=== PATIENT | female | born 1950 | race Caucasian/White ===

== ENCOUNTER 2016-08-27 13:08 | Outpatient (CLI) | payer MEDICARE, OTHER | END 2016-08-27 13:09 | disposition home or self-care (01) | DX: Z12.31 Encounter for screening mammogram for malignant neoplasm of breast (principal) ==

== ENCOUNTER 2016-08-27 13:10 | Outpatient (CLI) | payer MEDICARE, OTHER | END 2016-08-27 13:11 | disposition home or self-care (01) | DX: M85.88 Other specified disorders of bone density and structure, other site (principal); Z78.0 Asymptomatic menopausal state ==

== ENCOUNTER 2016-11-01 10:44 | Outpatient (CLI) | payer MEDICARE, OTHER ==
[2016-11-01 11:08] LABS: BASOPHILS # (AUTO) 0.1 10^3/uL (0.0-0.1); BASOPHILS % (AUTO) 1.4 %; EOSINOPHILS # (AUTO) 0.1 10^3/uL (0.0-0.7); EOSINOPHILS % (AUTO) 1.8 %; HCT - HEMATOCRIT 40.5 % (37.0-47.0); HGB - HEMOGLOBIN 13.9 g/dL (12.0-16.0); LYMPHOCYTES # (AUTO) 1.8 10^3/uL (1.5-3.5); LYMPHOCYTES % (AUTO) 26.1 %; MEAN CORPUSCULAR HEMOGLOBIN 32.1 pg (27.0-31.0); MEAN CORPUSCULAR HGB CONC 34.3 g/dL (32.0-36.0); MEAN CORPUSCULAR VOLUME 93.6 fL (81.0-99.0); MEAN PLATELET VOLUME 7.8 fL (7.9-10.8); MONOCYTES # (AUTO) 0.5 10^3/uL (0.0-1.0); MONOCYTES % (AUTO) 7.4 %; NEUTROPHILS # (AUTO) 4.3 10^3/uL (1.5-6.6); NEUTROPHILS % (AUTO) 63.3 %; RED BLOOD COUNT 4.32 10^6/uL (4.20-5.40); RED CELL DISTRIBUTION WIDTH 13.4 % (12.0-15.0); UNCORRECTED WHITE BLOOD COUNT 6.8 x10^3/uL; WHITE BLOOD COUNT 6.8 x10^3/uL (4.8-10.8)
== END 2016-11-01 10:45 | disposition home or self-care (01) ==
LOC: LAB 10:44
PROVIDERS: ATTEND Internal Medicine Cardiovascular Disease
DX: I48.0 Paroxysmal atrial fibrillation (principal)
CPT/HCPCS: 36415; 85025

== ENCOUNTER 2017-09-02 08:45 | Outpatient (CLI) | payer MEDICARE, OTHER ==
--- NOTE | 2017-09-03 11:20 | Mammography Report ---
DIGITAL SCREENING MAMMOGRAM: 09/02/2017 CLINICAL INDICATION: A 67-year-old for screening. COMPARISON: 08/2016, 12/2013, 10/2012, 06/2011, 11/2009. TECHNIQUE: Routine CC and MLO projections were obtained of the breasts. FINDINGS: Scattered fibroglandular tissue is present within the breasts. There are no dominant masses, suspicious microcalcifications, or secondary signs of malignancy. In comparison to the previous studies, there are no significant changes. IMPRESSION: NO MAMMOGRAPHIC EVIDENCE OF MALIGNANCY. NO SIGNIFICANT INTERVAL CHANGES. RECOMMENDATION: Screening mammography is recommended annually. BIRADS CATEGORY 1 - NEGATIVE. STANDARD QUALIFYING STATEMENTS: 1. This examination was reviewed with the aid of Computed-Aided Detection (CAD). 2. A negative or benign imaging report should not delay biopsy if clinically suspicious findings are present. Consider surgical consultation if warranted. More than 5% of cancers are not identified by imaging. 3. Dense breasts may obscure an underlying neoplasm. TD: 09/03/2017 11:19
== END 2017-09-02 08:46 | disposition home or self-care (01) ==
LOC: DI 08:45
PROVIDERS: ATTEND Physician Assistant
DX: Z12.31 Encounter for screening mammogram for malignant neoplasm of breast (principal)
CPT/HCPCS: 77067

== ENCOUNTER 2017-12-09 08:39 | Outpatient (CLI) | payer MEDICARE, OTHER ==
[2017-12-09 11:46] LABS: BASOPHILS # (AUTO) 0.1 10^3/uL (0.0-0.1); BASOPHILS % (AUTO) 1.2 %; EOSINOPHILS # (AUTO) 0.1 10^3/uL (0.0-0.7); EOSINOPHILS % (AUTO) 1.7 %; HGB - HEMOGLOBIN 13.5 g/dL (12.0-16.0); LYMPHOCYTES # (AUTO) 1.7 10^3/uL (1.5-3.5); LYMPHOCYTES % (AUTO) 25.4 %; MEAN CORPUSCULAR HEMOGLOBIN 32.6 pg (27.0-31.0); MEAN CORPUSCULAR HGB CONC 33.6 g/dL (32.0-36.0); MEAN PLATELET VOLUME 9.1 fL (7.9-10.8); MONOCYTES # (AUTO) 0.5 10^3/uL (0.0-1.0); MONOCYTES % (AUTO) 7.8 %; NEUTROPHILS # (AUTO) 4.4 10^3/uL (1.5-6.6); NEUTROPHILS % (AUTO) 63.9 %; PLT - PLATELET COUNT 305 10^3/uL (130-450); RED BLOOD COUNT 4.13 10^6/uL (4.20-5.40); RED CELL DISTRIBUTION WIDTH 12.9 % (12.0-15.0); WHITE BLOOD COUNT 6.8 x10^3/uL (4.8-10.8)
[2017-12-09 12:09] LABS: ALBUMIN 3.8 g/dL (3.2-5.5); ALBUMIN/GLOBULIN RATIO 1.2 (1.0-2.2); CALCIUM 8.9 mg/dL (8.5-10.3); CREATININE 0.6 mg/dL (0.4-1.0); TOTAL PROTEIN 6.9 g/dL (6.7-8.2)
[2017-12-09 12:24] LABS: THYROID STIMULATING HORMONE 2.51 uIU/mL (0.34-5.60)
[2017-12-09 12:26] LABS: FREE T4 (FREE THYROXINE) 0.86 ng/dL (0.58-1.64)
== END 2017-12-09 08:40 | disposition home or self-care (01) ==
LOC: LAB.F 08:39
PROVIDERS: ATTEND Internal Medicine Cardiovascular Disease
DX: Z79.899 Other long term (current) drug therapy (principal)
CPT/HCPCS: 36415; 80053; 84439; 84443; 85025

== ENCOUNTER 2017-12-10 08:21 | Outpatient (CLI) | payer MEDICARE, OTHER | END 2017-12-10 08:22 | disposition home or self-care (01) | LOC: DI 08:21 | PROVIDERS: ATTEND Internal Medicine Cardiovascular Disease | DX: I48.91 Unspecified atrial fibrillation (principal); R53.83 Other fatigue | CPT/HCPCS: 93306 ==

== ENCOUNTER 2019-04-29 11:00 | Outpatient (CLI) | payer MEDICARE, OTHER ==
--- NOTE | 2019-04-30 07:46 | Mammography Report ---
Reason: ROUTINE MAMMO Procedure Date: 04/29/2019 Accession Number: [id number] / [id number] Procedure: REFUGIO - Screening Mammo Dig Bilat CPT Code: Final Report FULL RESULT: EXAM: Screening Mammo Dig Bilat DATE: 04/29/2019 11:33 AM CLINICAL HISTORY: Screening encounter. TECHNIQUE: (B) - Bilateral CC and MLO views were obtained. COMPARISON: 09/02/2017 through 12/12/2009. PARENCHYMAL PATTERN: (A) - The breast(s) demonstrate(s) scattered fibroglandular densities. FINDINGS: There are no suspicious masses, calcifications, or areas of distortion. IMPRESSION: Negative examination. BI-RADS category 1. RECOMMENDATION: (ANNUAL) - Recommend routine annual screening mammography. BI-RADS CATEGORY: (1) - Negative. STANDARD QUALIFYING STATEMENTS: 1. This examination was not reviewed with the aid of Computer-Aided Detection (CAD). 2. A negative or benign imaging report should not preclude biopsy if clinically suspicious findings are present. 3. Dense breasts may obscure an underlying neoplasm. 4. This examination was reviewed without the aid of 3D breast imaging (tomosynthesis).
--- NOTE | 2019-05-04 10:10 | Mammography Report ---
Reason: SCREENING MAMMO Procedure Date: 04/29/2019 Accession Number: [id number] / [id number] Procedure: REFUGIO - Screening Mammo w/Joey CPT Code: Final Report FULL RESULT: EXAM: Screening Mammo w/Joey DATE: 04/29/2019 11:23 AM CLINICAL HISTORY: Routine screening TECHNIQUE: (B) - Bilateral CC and MLO views were obtained. COMPARISON: 09/02/2017, 08/27/2016, 01/06/2014, 11/13/2012, 07/11/2011, and 12/12/2009 PARENCHYMAL PATTERN: (A) - The breasts demonstrate scattered fibroglandular densities bilaterally. FINDINGS: Left breast: There are no suspicious masses, calcifications, or areas of distortion. Right breast: At least 1 and possibly 2 immediately retroareolar nodules are seen which have been present on several studies but not previously evaluated. No architectural distortion, skin thickening, or suspicious microcalcifications. IMPRESSION: Incomplete examination. BI-RADS category 0. Needs additional evaluation right breast by spot compression and true lateral views and possible ultrasound. Negative left breast. RECOMMENDATION: ([facility]) - Additional views using both Mammography and Ultrasound recommended. Right breast. BI-RADS CATEGORY: (0) - Incomplete Examination - need additional evaluation. STANDARD QUALIFYING STATEMENTS: 1. This examination was not reviewed with the aid of Computer-Aided Detection (CAD). 2. A negative or benign imaging report should not preclude biopsy if clinically suspicious findings are present. 3. Dense breasts may obscure an underlying neoplasm. 4. This examination was reviewed without the aid of 3D breast imaging (tomosynthesis).
== END 2019-04-29 11:01 | disposition home or self-care (01) ==
LOC: DI 11:00
DX: Z12.31 Encounter for screening mammogram for malignant neoplasm of breast (principal); R92.8 Other abnormal and inconclusive findings on diagnostic imaging of breast
CPT/HCPCS: 77063; 77067

== ENCOUNTER 2019-05-27 13:57 | Outpatient (CLI) | payer MEDICARE, OTHER ==
--- NOTE | 2019-05-27 16:19 | Ultrasound Report ---
Reason: ABNORMAL MAMMO RT BREAST Procedure Date: 05/27/2019 Accession Number: [id number] / [id number] Procedure: US - Breast Unilateral Limited CPT Code: Final Report FULL RESULT: EXAM: Breast Unilateral Limited, Diag Special Views Dig RT DATE: 05/27/2019 3:06 PM CLINICAL HISTORY: The patient is an asymptomatic 69-year-old female recalled from screening mammogram (04/29/2019) RIGHT MAMMOGRAM TECHNIQUE: ( 3-D CC and LM views. Spot CC and MLO views. COMPARISON: 04/29/2019 MAMMOGRAM FINDINGS: The breasts demonstrate scattered fibroglandular densities bilaterally. The described subareolar asymmetry near fully dissipates on targeted diagnostic imaging. There are no mammographic features of malignancy. RIGHT ULTRASOUND TECHNIQUE: A high frequency transducer was utilized to evaluate the subareolar position (area of mammographic concern). Presented static images obtained. FINDINGS: ULTRASOUND FINDINGS: [place] of normal fibroglandular tissue present. Few normal subareolar ducts noted. No solid mass, distortion or hyperemia. There are no sonographic features of malignancy. IMPRESSION: Benign findings. BI-RADS category 2. RECOMMENDATION: (ANNUAL) - Recommend routine annual screening mammography. BI-RADS CATEGORY: (2) - Benign Findings. STANDARD QUALIFYING STATEMENTS: A negative or benign imaging report should not preclude biopsy if clinically suspicious findings are present. Dense breasts may obscure an underlying neoplasm. This mammogram was reviewed with the aid of 3D breast imaging (tomosynthesis).
== END 2019-05-27 13:58 | disposition home or self-care (01) ==
LOC: DI 13:57
PROVIDERS: ATTEND Physician Assistant
DX: R92.8 Other abnormal and inconclusive findings on diagnostic imaging of breast (principal)
CPT/HCPCS: 76642

== ENCOUNTER 2019-07-30 07:30 | Outpatient (CLI) | payer MEDICARE, OTHER ==
[2019-07-30 10:18] LABS: BASOPHILS # (AUTO) 0.1 10^3/uL (0.0-0.1); BASOPHILS % (AUTO) 1.3 %; EOSINOPHILS # (AUTO) 0.2 10^3/uL (0.0-0.7); EOSINOPHILS % (AUTO) 2.3 %; HGB - HEMOGLOBIN 13.8 g/dL (12.0-16.0); LYMPHOCYTES % (AUTO) 26.2 %; MEAN CORPUSCULAR HGB CONC 32.9 g/dL (32.0-36.0); MEAN CORPUSCULAR VOLUME 97.4 fL (81.0-99.0); MEAN PLATELET VOLUME 10.1 fL (7.9-10.8); MONOCYTES # (AUTO) 0.6 10^3/uL (0.0-1.0); MONOCYTES % (AUTO) 7.8 %; NEUTROPHILS # (AUTO) 4.7 10^3/uL (1.5-6.6); NEUTROPHILS % (AUTO) 62.1 %; PLT - PLATELET COUNT 345 10^3/uL (130-450); RED BLOOD COUNT 4.31 10^6/uL (4.20-5.40); RED CELL DISTRIBUTION WIDTH 12.2 % (12.0-15.0); WHITE BLOOD COUNT 7.6 x10^3/uL (4.8-10.8)
[2019-07-30 10:41] LABS: ALBUMIN 4.2 g/dL (3.2-5.5); ALBUMIN/GLOBULIN RATIO 1.3 (1.0-2.2); BILIRUBIN,TOTAL 0.9 mg/dL (0.2-1.0); CALCIUM 8.9 mg/dL (8.5-10.3); CREATININE 0.7 mg/dL (0.4-1.0); TOTAL PROTEIN 7.4 g/dL (6.7-8.2)
[2019-07-30 10:56] LABS: THYROID STIMULATING HORMONE 1.92 uIU/mL (0.34-5.60)
[2019-07-30 10:58] LABS: FREE T4 (FREE THYROXINE) 0.81 ng/dL (0.58-1.64)
== END 2019-07-30 07:31 | disposition home or self-care (01) ==
LOC: LAB.S 07:30
PROVIDERS: ATTEND Physician Assistant
DX: F41.9 Anxiety disorder, unspecified (principal); Z79.01 Long term (current) use of anticoagulants
CPT/HCPCS: 36415; 80053; 84439; 84443; 85025

== ENCOUNTER 2020-09-05 11:17 | Outpatient (CLI) | payer MEDICARE, OTHER ==
--- NOTE | 2020-09-06 09:58 | Mammography Report ---
BILATERAL DIGITAL SCREENING MAMMOGRAM 3D/2D: 09/05/2020 CLINICAL: Routine screening. Comparison is made to exams dated: 05/27/2019 mammogram, 04/29/2019 mammogram, and 08/23/2017 mammogram - [facility]. There are scattered fibroglandular elements in both breasts. No significant masses, calcifications, or other findings are seen in either breast. There has been no significant interval change. IMPRESSION: NEGATIVE There is no mammographic evidence of malignancy. A 1 year screening mammogram is recommended. This exam was interpreted at Station ID: [id number]. NOTE: For mammograms, a report in lay terms will be sent to the patient. Approximately 15% of breast malignancies will not be visualized mammographically. In the management of a palpable breast mass, a negative mammogram must not discourage biopsy of a clinically suspicious lesion. Electronically Signed By: Navi Youssef M.D. ar/penrad:09/05/2020 12:14:12 ACR BI-RADS Category 1: Negative 3341F PARENCHYMAL PATTERN: (A) - The breast(s) demonstrate(s) scattered fibroglandular densities. BI-RADS CATEGORY: (1) - 1 RECOMMENDATION: (ANNUAL) - Recommend routine annual screening mammography. [id number] 1 year screening LATERALITY: (B)
== END 2020-09-05 11:18 | disposition home or self-care (01) ==
LOC: DI 11:17
DX: Z12.31 Encounter for screening mammogram for malignant neoplasm of breast (principal)

== ENCOUNTER 2020-10-03 08:25 | Outpatient (CLI) | payer MEDICARE, OTHER ==
--- NOTE | 2020-10-03 10:00 | DEXA Report ---
PROCEDURE: Dexa Spine and/or Hip INDICATIONS: OSTEOPENIA TECHNIQUE: Dual energy x-ray absorptiometry (DXA) was performed on a [employer]. Regions measur ed are the AP Spine, femoral neck, and if needed forearm. COMPARISON: DEXA 08/27/2016 FINDINGS: Lumbar Spine: Bone Mineral Density 1.04 g/cm/cm,T score 0.2, compared to 0.4 Left Hip: Bone Mineral Density 0.891 g/cm/cm,T score -0.9, . -0.8 Left Femoral Neck: Bone Mineral Density 0.895 g/cm/cm, T score -1.0, compared to -1.2 (T score greater or equal to -1.0: NORMAL) (T score from -1.1 to -2.4: OSTEOPENIA) (T score less than or equal to -2.5 to: OSTEOPOROSIS) Impression: Borderline osteopenia within left femoral neck, slightly improved compared to prior exam. Patients with diagnosis of osteoporosis or osteopenia should have regular bone mineral density assess ment. For those eligible for Medicare, routine testing is allowed once every 2 years. Testing frequ ency can be increased for patients who have rapidly progressing disease or for those who are receivin g medical therapy to restore bone mass. Reviewed by: Ruth Piper MD on 10/03/2020 9:59 AM PDT Approved by: Ruth Piper MD on 10/03/2020 9:59 AM PDT Station ID: [id number]
== END 2020-10-03 08:26 | disposition home or self-care (01) ==
LOC: DI 08:25
PROVIDERS: ATTEND Nurse Practitioner Family
DX: M85.88 Other specified disorders of bone density and structure, other site (principal)

== ENCOUNTER 2020-11-22 09:37 | Outpatient (CLI) | payer MEDICARE, OTHER ==
[2020-11-22 10:13] LABS: CHOL/HDL RATIO 5.2 (<4.4); CHOLESTEROL 265 mg/dL; HDL CHOLESTEROL 51 mg/dL; LDL CHOLESTEROL,CALCULATED 180 mg/dL; LDL/HDL RATIO 3.5 (<4.4); TRIGLYCERIDES 171 mg/dL; VLDL CHOLESTEROL 34 mg/dL
== END 2020-11-22 09:38 | disposition home or self-care (01) ==
LOC: LAB 09:37
PROVIDERS: ATTEND Nurse Practitioner Family
DX: E78.1 Pure hyperglyceridemia (principal)
CPT/HCPCS: 36415; 80061; 83721

== ENCOUNTER 2021-03-09 06:46 | Outpatient (CLI) | payer MEDICARE, OTHER ==
--- NOTE | 2021-03-09 10:03 | Ultrasound Report ---
PROCEDURE: Carotid Doppler Complete INDICATIONS: EMBOLIC STROKE TECHNIQUE: Color and pulse Doppler interrogation was performed of both carotid systems, with image documentation and velocity measurements. COMPARISON: None. FINDINGS: Right side: Brachial blood pressure: 134/58 mm Hg. Common carotid artery peak systolic velocity: 86 cm/sec. Internal carotid artery peak systolic velocity: 104 cm/sec. Internal carotid artery end diastolic velocity: 41 cm/sec. External carotid artery peak systolic velocity: 94 cm/sec. ICA/CCA peak systolic ratio: 1.2 . Villareal scale imaging description: Widely patent vessels Percent internal carotid artery stenosis: Widely patent . Vertebral artery: Flow direction is antegrade. Left side: Brachial blood pressure: 127/71 mm Hg. Common carotid artery peak systolic velocity: 54 cm/sec. Internal carotid artery peak systolic velocity: 82 cm/sec. Internal carotid artery end diastolic velocity: 30 cm/sec. External carotid artery peak systolic velocity: 151 cm/sec. ICA/CCA peak systolic ratio: 1.5 . Villareal scale imaging description: Widely patent vessels Percent internal carotid artery stenosis: Widely patent vessels . Vertebral artery: Flow direction is antegrade. IMPRESSION: Unremarkable duplex carotid ultrasound. The estimate of stenosis included in the report of the imaging study was calculated using the NASCET method Reviewed by: Natalio Hankins MD on 03/09/2021 10:02 AM PDT Approved by: Natalio Hankins MD on 03/09/2021 10:02 AM PDT Station ID: [id number]
== END 2021-03-09 06:47 | disposition home or self-care (01) ==
LOC: DI 06:46
PROVIDERS: ATTEND Internal Medicine Cardiovascular Disease
DX: H54.61 Unqualified visual loss, right eye, normal vision left eye (principal); I63.89 Other cerebral infarction
CPT/HCPCS: 93880

== ENCOUNTER 2021-09-12 08:50 | Outpatient (CLI) | payer MEDICARE, OTHER ==
--- NOTE | 2021-09-12 16:14 | Mammography Report ---
BILATERAL DIGITAL SCREENING MAMMOGRAM 3D/2D: 09/12/2021 CLINICAL: Routine screening. Comparison is made to exams dated: 09/05/2020 mammogram, 05/27/2019 mammogram, 04/29/2019 mammogram, an d 08/23/2017 mammogram - [facility]. There are scattered fibroglandular elements in both breasts. No significant masses, calcifications, or other findings are seen in either breast. There has been no significant interval change. IMPRESSION: NEGATIVE There is no mammographic evidence of malignancy. A 1 year screening mammogram is recommended. This exam was interpreted at Station ID: [id number]. NOTE: For mammograms, a report in lay terms will be sent to the patient. Approximately 15% of breast malignancies will not be visualized mammographically. In the management of a palpable breast mass, a negative mammogram must not discourage biopsy of a clinically suspicious lesion. Electronically Signed By: Aditi henson/dulce:09/12/2021 09:30:59 ACR BI-RADS Category 1: Negative 3341F PARENCHYMAL PATTERN: (A) - The breast(s) demonstrate(s) scattered fibroglandular densities. BI-RADS CATEGORY: (1) - 1 RECOMMENDATION: (ANNUAL) - Recommend routine annual screening mammography. [id number] 1 year screening LATERALITY: (B)
== END 2021-09-12 08:51 | disposition home or self-care (01) ==
LOC: DI.S 08:50
DX: Z12.31 Encounter for screening mammogram for malignant neoplasm of breast (principal)

== ENCOUNTER 2022-10-31 10:14 | Outpatient (CLI) | payer MEDICARE, OTHER ==
--- NOTE | 2022-10-31 15:07 | DEXA Report ---
PROCEDURE: Dexa Spine and/or Hip INDICATIONS: POST MENOPAUSAL TECHNIQUE: Dual energy x-ray absorptiometry (DXA) was performed on a [employer]. Regions measur ed are the AP Spine, femoral neck, and if needed forearm. COMPARISON: 10/03/2020 FINDINGS: Lumbar Spine: Bone Mineral Density 1.211 g/cm/cm,T score 0.3. Normal, change from previous 17.7%, significant Left Femoral Neck: Bone Mineral Density 0.874 g/cm/cm, T score -1.2. Osteopenia, change from previous -10.6%, significan t Left Hip: Bone Mineral Density 0.893 g/cm/cm,T score -0.9. Normal (T score greater or equal to -1.0: NORMAL) (T score from -1.1 to -2.4: OSTEOPENIA) (T score less than or equal to -2.5 to: OSTEOPOROSIS) Impression: By WHO criteria, this patient has low bone density (osteopenia). This raises the patient's 10 year fr acture risk. There is been significant interval increase in lumbar spine bone mineral density which may be seconda ry to degenerative endplate sclerosis. Significant decrease in femoral neck bone mineral density, whi ch may be a more accurate reflection of the patient's trend. Patients with diagnosis of osteoporosis or osteopenia should have regular bone mineral density assess ment. For those eligible for Medicare, routine testing is allowed once every 2 years. Testing frequ ency can be increased for patients who have rapidly progressing disease or for those who are receivin g medical therapy to restore bone mass. Reviewed by: Lin Cisneros MD on 10/31/2022 3:06 PM PDT Approved by: Lin Cisneros MD on 10/31/2022 3:06 PM PDT Station ID: [id number]
== END 2022-10-31 10:15 | disposition home or self-care (01) ==
LOC: DI 10:14
PROVIDERS: ATTEND Nurse Practitioner Family
DX: Z78.0 Asymptomatic menopausal state (principal); M85.80 Other specified disorders of bone density and structure, unspecified site

== ENCOUNTER 2022-10-31 10:14 | Outpatient (CLI) | payer MEDICARE, OTHER ==
--- NOTE | 2022-11-01 12:17 | Mammography Report ---
BILATERAL DIGITAL SCREENING MAMMOGRAM 3D/2D: 10/31/2022 CLINICAL: Routine screening. Comparison is made to exams dated: 09/12/2021 mammogram, 09/05/2020 mammogram, 05/27/2019 mammogram, 03/2019 mammogram, 08/23/2017 mammogram, and 08/27/2016 mammogram - [facility]. There are scattered areas of fibroglandular density in both breasts (category b / 25%-50% glandular t issue). No significant masses, calcifications, or other findings are seen in either breast. There has been no significant interval change. IMPRESSION: NEGATIVE There is no mammographic evidence of malignancy. A 1 year screening mammogram is recommended. Based on the Tyrer Cuzick model (a risk assessment model) the patients lifetime risk is 2.9% and her 10 year risk is 2.6%. According to the ACR, ACS, and NCCN guidelines, an annual breast MRI exam mayi g with mammogram is recommended if the patients lifetime risk is 20% or greater. This exam was interpreted at Station ID: [id number]. NOTE: For mammograms, a report in lay terms will be sent to the patient. Approximately 15% of breast malignancies will not be visualized mammographically. In the management of a palpable breast mass, a negative mammogram must not discourage biopsy of a clinically suspicious lesion. Electronically Signed By: Jerrod tijerina/dulce:10/31/2022 17:51:57 letter sent: No_Letter ACR BI-RADS Category 1: Negative 3341F PARENCHYMAL PATTERN: (A) - The breast(s) demonstrate(s) scattered fibroglandular densities. BI-RADS CATEGORY: (1) - 1 Mammogram [id number] 1 year screening LATERALITY: (B)
== END 2022-10-31 10:15 | disposition home or self-care (01) ==
LOC: DI 10:14
PROVIDERS: ATTEND Nurse Practitioner Family
DX: Z12.31 Encounter for screening mammogram for malignant neoplasm of breast (principal)